=== PATIENT | female | born 1950 | race Caucasian/White ===

== ENCOUNTER 2022-09-18 17:13 | Inpatient (IN) | payer OTHER, MEDICARE ==
[2022-09-18 18:57] LABS: BASO % 0.4 % (0-2.0); EOS % 0.5 % (0-4.5); HEMATOCRIT 34.3 % (32.4-45.2); HEMOGLOBIN 11.3 GM/dL (10.7-15.3); LYMPH % 24.6 % (8-40); MCH 30.5 pg (25.7-33.7); MEAN CELL VOLUME 92.5 fl (80-96); MONO % 7.4 % (3.8-10.2); NEUT % 67.1 % (42.8-82.8); PLATELET COUNT 281 10^3/uL (134-434); RBC 3.71 M/mm3 (3.60-5.2); WHITE BLOOD COUNT 8.8 K/mm3 (4.0-10.0)
[2022-09-18 18:58] LABS: URINE APPEARANCE CLEAR; URINE BILIRUBIN NEGATIVE (NEGATIVE); URINE COLOR YELLOW; URINE GLUCOSE (UA) NEGATIVE (NEGATIVE); URINE KETONE NEGATIVE (NEGATIVE); URINE LEUK ESTERASE NEGATIVE (NEGATIVE); URINE NITRITE NEGATIVE (NEGATIVE); URINE PROTEIN NEGATIVE (NEGATIVE); URINE UROBILINOGEN 0.2 mg/dL (0.2-1.0)
[2022-09-18 19:23] LABS: ALBUMIN 3.1 g/dl (3.4-5.0); BLOOD UREA NITROGEN 20.8 mg/dL (7-18); CALCIUM 9.1 mg/dL (8.5-10.1)
[2022-09-18 19:25] LABS: CREATININE 0.9 mg/dL (0.55-1.3)
[2022-09-18 19:27] LABS: PHOSPHOROUS 2.7 mg/dL (2.5-4.9)
[2022-09-18 19:28] LABS: BILIRUBIN,TOTAL 0.8 mg/dL (0.2-1)
[2022-09-18] MEDS ORDERED: HALOPERIDOL LACTATE 5 MG/ML IM ONE ×2 (23:41→23:45)
[2022-09-18] MEDS ORDERED: MIDAZOLAM HCL 2 MG/2 ML SINGLE DOSE VIAL IVPUSH ONE (23:55)
[2022-09-19] MEDS ORDERED: MIDAZOLAM HCL 2 MG/2 ML SINGLE DOSE VIAL ONE (00:13)
[2022-09-19] MEDS ORDERED: HALOPERIDOL LACTATE 5 MG/ML IM ONE ×2 (00:26→00:30)
[2022-09-19] MEDS: LORazepam 2 MG/ML SDV VIAL IVPUSH PRN ×4 (04:11→19:29)
[2022-09-19] MEDS ORDERED: QUEtiapine FUMARATE 25 MG TABLET PO SCH (06:00)
[2022-09-19] MEDS: LEVOTHYROXINE NA 25 MCG TABLET (FP) PO SCH (06:18)
[2022-09-19 09:58] LABS: HEMATOCRIT 37.8 % (32.4-45.2); HEMOGLOBIN 12.5 GM/dL (10.7-15.3); MCH 30.2 pg (25.7-33.7); MEAN CELL VOLUME 91.5 fl (80-96); PLATELET COUNT 307 10^3/uL (134-434); RBC 4.14 M/mm3 (3.60-5.2); WHITE BLOOD COUNT 7.6 K/mm3 (4.0-10.0)
[2022-09-19] MEDS ORDERED: risperiDONE 0.5 MG TABLET PO SCH (10:00)
[2022-09-19 10:52] LABS: ALBUMIN 3.3 g/dl (3.4-5.0); CREATININE 0.9 mg/dL (0.55-1.3)
[2022-09-19 10:54] LABS: BILIRUBIN,TOTAL 1.1 mg/dL (0.2-1); TOT PROT 6.5 g/dl (6.4-8.2)
[2022-09-19 10:56] LABS: PHOSPHOROUS 2.7 mg/dL (2.5-4.9)
[2022-09-19 11:02] LABS: BLOOD UREA NITROGEN 16.6 mg/dL (7-18); CALCIUM 8.9 mg/dL (8.5-10.1); MAGNESIUM 2.3 mg/dL (1.8-2.4)
[2022-09-19] MEDS: RAMIPRIL 5 MG CAPSULE PO SCH (12:25)
[2022-09-19] MEDS: MULTIVITAMINS (DAILY MVI) TABLET (FP) PO SCH (12:25)
[2022-09-19] MEDS: DULoxetine HCL 30 MG CAPSULE.DR PO SCH (12:25)
[2022-09-19] MEDS: MEMANTINE HCL 5 MG TABLET (UD) PO SCH (12:25)
[2022-09-19] MEDS: ENOXAPARIN NA (PORCINE) 40 MG/0.4 ML DISP.SYRIN SQ SCH (12:25)
[2022-09-19] MEDS: HALOPERIDOL LACTATE 5 MG/ML IM PRN ×2 (14:20→19:28)
[2022-09-19] MEDS: risperiDONE 1 MG TABLET PO SCH ×2 (15:36→21:50)
[2022-09-19] MEDS: RIVASTIGMINE TARTRATE 1.5 MG CAPSULE PO SCH (21:01)
[2022-09-19] MEDS ORDERED: DONEPEZIL HCL 10 MG TABLET (FP) PO SCH (22:00)
[2022-09-20] MEDS: HALOPERIDOL LACTATE 5 MG/ML IM PRN ×2 (06:20→14:08)
[2022-09-20] MEDS: LORazepam 2 MG/ML SDV VIAL IVPUSH PRN ×3 (06:20→20:36)
[2022-09-20] MEDS: LEVOTHYROXINE NA 25 MCG TABLET (FP) PO SCH (06:24)
[2022-09-20] MEDS: MEMANTINE HCL 5 MG TABLET (UD) PO SCH (09:42)
[2022-09-20] MEDS: MULTIVITAMINS (DAILY MVI) TABLET (FP) PO SCH (09:42)
[2022-09-20] MEDS: RAMIPRIL 5 MG CAPSULE PO SCH (09:42)
[2022-09-20] MEDS: ENOXAPARIN NA (PORCINE) 40 MG/0.4 ML DISP.SYRIN SQ SCH (09:42)
[2022-09-20] MEDS: DULoxetine HCL 30 MG CAPSULE.DR PO SCH (09:42)
[2022-09-20] MEDS: RIVASTIGMINE TARTRATE 1.5 MG CAPSULE PO SCH ×2 (09:43→17:16)
[2022-09-20] MEDS: risperiDONE 1 MG TABLET PO SCH ×2 (09:43→21:35)
[2022-09-20] MEDS ORDERED: LACTATED RINGERS SOLUTION 1000 ML INFUS.BAG IV ONE (16:31)
[2022-09-20] MEDS: DEXTROSE 5%-LACTATED RINGERS 1,000 ML IV SCH (17:20)
[2022-09-20] MEDS ORDERED: [UNRECOGNIZED DRUG - OTHER] PO SCH (23:45)
[2022-09-20] MEDS ORDERED: MAGNESIUM OXIDE ASPARTATE CITR PO SCH (23:45)
[2022-09-21] MEDS: LEVOTHYROXINE NA 25 MCG TABLET (FP) PO SCH (06:19)
[2022-09-21 09:08] LABS: CALCIUM 8.6 mg/dL (8.5-10.1)
[2022-09-21 09:10] LABS: BLOOD UREA NITROGEN 18.7 mg/dL (7-18)
[2022-09-21 09:12] LABS: CREATININE 0.8 mg/dL (0.55-1.3)
[2022-09-21] MEDS: HALOPERIDOL LACTATE 5 MG/ML IM PRN ×2 (10:21→20:30)
[2022-09-21] MEDS: MEMANTINE HCL 5 MG TABLET (UD) PO SCH ×2 (10:53→11:21)
[2022-09-21] MEDS: MULTIVITAMINS (DAILY MVI) TABLET (FP) PO SCH ×2 (10:53→11:21)
[2022-09-21] MEDS: DULoxetine HCL 30 MG CAPSULE.DR PO SCH ×2 (10:53→11:20)
[2022-09-21] MEDS: risperiDONE 1 MG TABLET PO SCH ×2 (10:53→11:21)
[2022-09-21] MEDS: RAMIPRIL 5 MG CAPSULE PO SCH ×2 (10:53→11:21)
[2022-09-21] MEDS: RIVASTIGMINE TARTRATE 1.5 MG CAPSULE PO SCH ×3 (10:53→17:57)
[2022-09-21] MEDS: LORazepam 2 MG/ML SDV VIAL IVPUSH PRN (11:13)
[2022-09-21] MEDS: ENOXAPARIN NA (PORCINE) 40 MG/0.4 ML DISP.SYRIN SQ SCH (11:21)
[2022-09-21] MEDS: DEXTROSE 5%-LACTATED RINGERS 1,000 ML IV SCH (20:24)
[2022-09-21] MEDS ORDERED: LORazepam 2 MG/ML SDV VIAL IVPUSH ONE (21:55)
[2022-09-21] MEDS: OLANZapine 10 MG TABLET PO SCH (22:10)
[2022-09-21] MEDS: MEMANTINE HCL 10 MG TABLET (FP) PO SCH (22:10)
[2022-09-22] MEDS ORDERED: LORazepam 2 MG/ML SDV VIAL IVPUSH ONE (05:56)
[2022-09-22] MEDS ORDERED: HALOPERIDOL LACTATE 5 MG/ML IM ONE (05:58)
[2022-09-22] MEDS: LEVOTHYROXINE NA 25 MCG TABLET (FP) PO SCH (12:45)
[2022-09-22] MEDS: RIVASTIGMINE TARTRATE 1.5 MG CAPSULE PO SCH ×2 (12:45→18:06)
[2022-09-22] MEDS: DULoxetine HCL 20 MG CAPSULE.DR PO SCH (12:46)
[2022-09-22] MEDS: MEMANTINE HCL 10 MG TABLET (FP) PO SCH ×2 (12:46→22:00)
[2022-09-22] MEDS: MULTIVITAMINS (DAILY MVI) TABLET (FP) PO SCH (12:46)
[2022-09-22] MEDS: ENOXAPARIN NA (PORCINE) 40 MG/0.4 ML DISP.SYRIN SQ SCH (13:00)
[2022-09-22] MEDS: RAMIPRIL 5 MG CAPSULE PO SCH (13:01)
[2022-09-22] MEDS ORDERED: clonazePAM 0.5 MG ODT TABLETS SL PRN (16:51)
[2022-09-22] MEDS ORDERED: clonazePAM 0.25 MG ODT TABLETS SL PRN (16:54)
[2022-09-22] MEDS: DEXTROSE 5%-LACTATED RINGERS 1,000 ML IV SCH (17:46)
[2022-09-22] MEDS: LORazepam 2 MG/ML SDV VIAL IM PRN (21:18)
[2022-09-22] MEDS: OLANZapine 10 MG TABLET PO SCH (22:00)
[2022-09-23] MEDS: LEVOTHYROXINE NA 25 MCG TABLET (FP) PO SCH (06:49)
[2022-09-23 08:07] LABS: BASO % 0.2 % (0-2.0); EOS % 0.5 % (0-4.5); HEMATOCRIT 38.3 % (32.4-45.2); HEMOGLOBIN 12.5 GM/dL (10.7-15.3); LYMPH % 12.5 % (8-40); MCH 29.6 pg (25.7-33.7); MCHC 32.7 g/dl (32.0-36.0); MEAN CELL VOLUME 90.3 fl (80-96); MEAN PLT VOLUME 7.9 fl (7.5-11.1); MONO % 9.7 % (3.8-10.2); NEUT % 77.1 % (42.8-82.8); PLATELET COUNT 344 10^3/uL (134-434); RBC 4.24 M/mm3 (3.60-5.2); RDW 14.7 % (11.6-15.6); WHITE BLOOD COUNT 12.9 K/mm3 (4.0-10.0)
[2022-09-23] MEDS: RIVASTIGMINE TARTRATE 1.5 MG CAPSULE PO SCH ×2 (08:37→18:18)
[2022-09-23 08:46] LABS: CALCIUM 8.7 mg/dL (8.5-10.1)
[2022-09-23 08:47] LABS: ALBUMIN 2.8 g/dl (3.4-5.0); BLOOD UREA NITROGEN 17.6 mg/dL (7-18)
[2022-09-23 08:50] LABS: CREATININE 0.8 mg/dL (0.55-1.3); TOT PROT 6.1 g/dl (6.4-8.2)
[2022-09-23] MEDS: MULTIVITAMINS (DAILY MVI) TABLET (FP) PO SCH (09:24)
[2022-09-23] MEDS: ENOXAPARIN NA (PORCINE) 40 MG/0.4 ML DISP.SYRIN SQ SCH (09:24)
[2022-09-23] MEDS: MEMANTINE HCL 10 MG TABLET (FP) PO SCH ×2 (09:24→22:02)
[2022-09-23] MEDS: DULoxetine HCL 20 MG CAPSULE.DR PO SCH (09:25)
[2022-09-23] MEDS ORDERED: clonazePAM 0.25 MG ODT TABLETS SL PRN (12:23)
[2022-09-23] MEDS: DEXTROSE 5%-LACTATED RINGERS 1,000 ML IV SCH (15:21)
[2022-09-23] MEDS: OLANZapine 10 MG TABLET PO SCH (22:02)
[2022-09-23] MEDS: LORazepam 2 MG/ML SDV VIAL IM PRN (23:52)
[2022-09-24] MEDS ORDERED: LACTATED RINGERS SOLUTION 1000 ML INFUS.BAG IV ONE (05:22)
[2022-09-24] MEDS ORDERED: LACTATED RINGERS SOLUTION 1,000 ML/1,000 ML INFUS.BAG IV SCH (05:30)
[2022-09-24] MEDS: LEVOTHYROXINE NA 50 MCG TABLET (FP) PO SCH (06:10)
[2022-09-24] MEDS: RIVASTIGMINE TARTRATE 1.5 MG CAPSULE PO SCH ×2 (08:50→18:46)
[2022-09-24] MEDS: ENOXAPARIN NA (PORCINE) 40 MG/0.4 ML DISP.SYRIN SQ SCH (10:26)
[2022-09-24] MEDS: DULoxetine HCL 20 MG CAPSULE.DR PO SCH (10:26)
[2022-09-24] MEDS: MEMANTINE HCL 10 MG TABLET (FP) PO SCH ×2 (10:27→21:57)
[2022-09-24] MEDS: MULTIVITAMINS (DAILY MVI) TABLET (FP) PO SCH (10:27)
[2022-09-24] MEDS: LORazepam 2 MG/ML SDV VIAL IM PRN (11:05)
[2022-09-24] MEDS: OLANZapine 10 MG TABLET PO SCH (21:57)
[2022-09-24 23:55] LABS: BASO % 0.3 % (0-2.0); HEMATOCRIT 40.7 % (32.4-45.2); HEMOGLOBIN 13.2 GM/dL (10.7-15.3); LYMPH % 20.4 % (8-40); MCH 29.4 pg (25.7-33.7); MCHC 32.6 g/dl (32.0-36.0); MEAN CELL VOLUME 90.1 fl (80-96); MEAN PLT VOLUME 7.9 fl (7.5-11.1); MONO % 12.8 % (3.8-10.2); NEUT % 65.5 % (42.8-82.8); PLATELET COUNT 356 10^3/uL (134-434); RBC 4.51 M/mm3 (3.60-5.2); RDW 14.6 % (11.6-15.6); WHITE BLOOD COUNT 12.9 K/mm3 (4.0-10.0)
[2022-09-25] MEDS: CEFTRIAXONE 1 GM in DEXTROSE 5%-WATER - 50 ML IVPB SCH ×2 (00:49→09:21)
[2022-09-25] MEDS: LEVOTHYROXINE NA 50 MCG TABLET (FP) PO SCH (06:21)
[2022-09-25] MEDS: RIVASTIGMINE TARTRATE 1.5 MG CAPSULE PO SCH ×2 (08:47→18:34)
[2022-09-25] MEDS: MEMANTINE HCL 10 MG TABLET (FP) PO SCH ×2 (09:22→22:56)
[2022-09-25] MEDS: ENOXAPARIN NA (PORCINE) 40 MG/0.4 ML DISP.SYRIN SQ SCH (09:22)
[2022-09-25] MEDS: MULTIVITAMINS (DAILY MVI) TABLET (FP) PO SCH (09:22)
[2022-09-25] MEDS: DULoxetine HCL 20 MG CAPSULE.DR PO SCH (09:22)
[2022-09-25] MEDS: BACITRACIN ZINC 15 GM TUBE TOPICAL OINTMENT TP SCH ×2 (14:14→23:06)
[2022-09-25 18:27] LABS: PH,URINE 5.5 (5.0-8.0); URINE APPEARANCE CLEAR; URINE BILIRUBIN NEGATIVE (NEGATIVE); URINE COLOR YELLOW; URINE GLUCOSE (UA) NEGATIVE (NEGATIVE); URINE KETONE NEGATIVE (NEGATIVE); URINE LEUK ESTERASE NEGATIVE (NEGATIVE); URINE NITRITE NEGATIVE (NEGATIVE); URINE PROTEIN TRACE (NEGATIVE); URINE UROBILINOGEN 0.2 mg/dL (0.2-1.0)
[2022-09-25] MEDS: OLANZapine 10 MG TABLET PO SCH (22:56)
[2022-09-26 06:04] VITALS: RESP 18
[2022-09-26] MEDS: LEVOTHYROXINE NA 25 MCG TABLET (FP) PO SCH (06:21)
[2022-09-26 08:38] LABS: BASO % 0.4 % (0-2.0); EOS % 1.4 % (0-4.5); HEMATOCRIT 37.5 % (32.4-45.2); HEMOGLOBIN 12.2 GM/dL (10.7-15.3); LYMPH % 18.4 % (8-40); MCH 29.5 pg (25.7-33.7); MCHC 32.6 g/dl (32.0-36.0); MEAN CELL VOLUME 90.6 fl (80-96); MONO % 10.8 % (3.8-10.2); PLATELET COUNT 342 10^3/uL (134-434); RBC 4.15 M/mm3 (3.60-5.2); RDW 14.8 % (11.6-15.6); WHITE BLOOD COUNT 11.7 K/mm3 (4.0-10.0)
[2022-09-26 09:06] LABS: ALBUMIN 2.5 g/dl (3.4-5.0)
[2022-09-26 09:07] LABS: BLOOD UREA NITROGEN 35.3 mg/dL (7-18)
[2022-09-26 09:08] LABS: CALCIUM 8.9 mg/dL (8.5-10.1)
[2022-09-26 09:10] LABS: CREATININE 0.9 mg/dL (0.55-1.3)
[2022-09-26 09:11] LABS: BILIRUBIN,TOTAL 0.8 mg/dL (0.2-1)
[2022-09-26] MEDS: RIVASTIGMINE TARTRATE 1.5 MG CAPSULE PO SCH ×2 (10:07→17:30)
[2022-09-26] MEDS: BACITRACIN ZINC 15 GM TUBE TOPICAL OINTMENT TP SCH ×2 (10:08→21:07)
[2022-09-26] MEDS: MULTIVITAMINS (DAILY MVI) TABLET (FP) PO SCH (10:09)
[2022-09-26] MEDS: DULoxetine HCL 20 MG CAPSULE.DR PO SCH (10:09)
[2022-09-26] MEDS: MEMANTINE HCL 10 MG TABLET (FP) PO SCH ×2 (10:10→21:07)
[2022-09-26] MEDS: HALOPERIDOL LACTATE 5 MG/ML IM PRN (14:14)
[2022-09-26] MEDS ORDERED: ACETAMINOPHEN 500 MG TABLET (FP) PO PRN ×2 (16:48→17:03)
[2022-09-26 18:09] VITALS: BMI 28.5
[2022-09-26] MEDS: OLANZapine 10 MG TABLET PO SCH (21:07)
[2022-09-27] MEDS: LEVOTHYROXINE NA 25 MCG TABLET (FP) PO SCH (06:56)
[2022-09-27] MEDS: RIVASTIGMINE TARTRATE 1.5 MG CAPSULE PO SCH ×2 (08:42→18:00)
[2022-09-27] MEDS: MEMANTINE HCL 10 MG TABLET (FP) PO SCH ×2 (09:57→21:51)
[2022-09-27] MEDS: DULoxetine HCL 20 MG CAPSULE.DR PO SCH (09:57)
[2022-09-27] MEDS: MULTIVITAMINS (DAILY MVI) TABLET (FP) PO SCH (09:57)
[2022-09-27] MEDS: BACITRACIN ZINC 15 GM TUBE TOPICAL OINTMENT TP SCH ×2 (09:57→21:50)
[2022-09-27] MEDS: OLANZapine 10 MG TABLET PO SCH (21:51)
[2022-09-27] MEDS: HALOPERIDOL LACTATE 5 MG/ML IM PRN (23:08)
[2022-09-28] MEDS: LEVOTHYROXINE NA 25 MCG TABLET (FP) PO SCH (06:46)
[2022-09-28] MEDS: RIVASTIGMINE TARTRATE 1.5 MG CAPSULE PO SCH ×2 (08:23→17:10)
[2022-09-28] MEDS: MEMANTINE HCL 10 MG TABLET (FP) PO SCH (09:54)
[2022-09-28] MEDS: MULTIVITAMINS (DAILY MVI) TABLET (FP) PO SCH (09:54)
[2022-09-28] MEDS: DULoxetine HCL 20 MG CAPSULE.DR PO SCH (09:54)
[2022-09-28] MEDS: BACITRACIN ZINC 15 GM TUBE TOPICAL OINTMENT TP SCH (09:55)
[2022-09-28 18:36] VITALS: BP 130/70; PULSE 82; TEMP 98
== END 2022-09-28 19:59 | DRG 57 ==
LOC: JER 17:13 → JERBED 18:38 → J5S 09-19 02:00
PROVIDERS: ADMIT Internal Medicine; ATTEND Internal Medicine
DX: G30.9 Alzheimer's disease, unspecified (principal); F02.818 Dementia in other diseases classified elsewhere, unspecified severity, with other behavioral disturbance; E03.9 Hypothyroidism, unspecified; I10 Essential (primary) hypertension; E78.00 Pure hypercholesterolemia, unspecified; F09 Unspecified mental disorder due to known physiological condition; R32 Unspecified urinary incontinence; M79.7 Fibromyalgia; E05.90 Thyrotoxicosis, unspecified without thyrotoxic crisis or storm; F43.10 Post-traumatic stress disorder, unspecified; R50.9 Fever, unspecified; R41.82 Altered mental status, unspecified
CPT/HCPCS: 0241U-QW; 36415; 70450-TC; 71045-TC-FY; 71046-TC-FY; 80048; 80053; 81003; 82550; 82553; 83605; 83735; 84100; 84439; 84443; 84484; 85025; 85027; 87040; 87086; 93005; 93010; 97116-GP; 97161-GP; 99291; C9803-CS; U0003; U0005